=== PATIENT | female | born 1980 | race Caucasian/White ===

== ENCOUNTER 2018-08-24 16:30 | Emergency (ER) | payer SELFPAY ==
--- NOTE | 2018-08-24 16:48 | ER Document Report ---
ED Medical Screen (RME) - General Chief Complaint: S/S of Possible Stroke Stated Complaint: POSSIBLE STROKE Time Seen by Provider: 08/24/18 16:35 TRAVEL OUTSIDE OF THE [place] 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 On brief history and exam. Patient has had complex migraines. She is complaining of a headache, slurring of speech, and right arm/right leg weakness. This started 40 minutes prior to arrival around 4:55 PM. She is accompanied by her 2 daughters. Denies FINN, fever, neck pain, URI, CP, SOB, Abd pain, or rash. I have treated and performed a rapid initial assessment of this patient. A comprehensive ED assessment and evaluation of the patient, analysis of test results and completion of medical decision making process will be conducted by additional ED providers. Reviewed with Dr. Bee who is evaluating patient at this time after she went to CT. PHYSICAL EXAMINATION: GENERAL: A&Ox4. Answers questions appropriately. HEAD: Atraumatic, normocephalic. Non-tender. EYES: Pupils equal round and reactive to light, extraocular movements intact, sclera anicteric, conjunctiva are normal. No nystagmus. NECK: Normal range of motion, supple without lymphadenopathy. No rigidity/meningismus. No midline tenderness. LUNGS: Breath sounds clear to auscultation bilaterally and equal. No wheezes rales or rhonchi. HEART: Regular rate and rhythm without murmurs, rubs, gallops. Musculoskeletal: Rt arm/le+/5 strength. Left 5+/5. Dec sensation rt arm/leg to sharp. Extremities: No cyanosis, clubbing, or edema b/l. Peripheral pulses 2+. Capillary refill less than 2 seconds. NEUROLOGICAL: NIH 8 (for speech, arm/leg dec sensation and drift, left facial droop). GCS 15. Cranial nerves grossly intact. PSYCH: Normal mood, normal affect. SKIN: Warm, Dry, normal turgor, no rashes or lesions noted. - Related Data Allergies/Adverse Reactions: latex Allergy (Verified 08/24/18 16:31)
[2018-08-24] MEDS ORDERED: MORPHINE SULFATE 10 MG/ML INJ ONE (16:49)
[2018-08-24] MEDS ORDERED: DIPHENHYDRAMINE HCL 50 MG/ML VIAL ONE (16:49)
[2018-08-24] MEDS ORDERED: METOCLOPRAMIDE HCL INJ/PF 10 MG/2 ML SDV ONE (16:50)
[2018-08-24] MEDS ORDERED: ONDANSETRON HCL INJ/PF 4 MG/2 ML SDV ONE (16:50)
--- NOTE | 2018-08-24 16:54 | RADIOLOGY REPORT (SQ) ---
EXAM DESCRIPTION: CT HEAD WITHOUT COMPLETED DATE/TIME: 08/24/2018 4:45 pm REASON FOR STUDY: stroke s/s COMPARISON: None. TECHNIQUE: Axial images acquired through the brain without intravenous contrast. Images reviewed wi th bone, brain and subdural windows. Additional sagittal and coronal reconstructions were generated. Images stored on PACS. All CT scanners at this facility use dose modulation, iterative reconstruction, and/or weight based d osing when appropriate to reduce radiation dose to as low as reasonably achievable (ALARA). [facility]: Dose Right [facility]: CareDose [facility]: Dose Right [facility]: Teradose 4D [facility]: [employer] RADIATION DOSE: CT Rad equipment meets quality standard of care and radiation dose reduction techniq ues were employed. CTDIvol: 53.2 mGy. DLP: 1044 mGy-cm. mGy. LIMITATIONS: None. FINDINGS: VENTRICLES: Normal size and contour. CEREBRUM: No masses. No hemorrhage. No midline shift. No evidence for acute infarction. Normal gra y/white matter differentiation. No areas of low density in the white matter. CEREBELLUM: No masses. No hemorrhage. No alteration of density. No evidence for acute infarction. EXTRAAXIAL SPACES: No fluid collections. No masses. ORBITS AND GLOBE: No intra- or extraconal masses. Normal contour of globe without masses. CALVARIUM: No fracture. PARANASAL SINUSES: No fluid or mucosal thickening. SOFT TISSUES: No mass or hematoma. OTHER: No other significant finding. IMPRESSION: No acute intracranial pathology. No CT evidence of acute stroke or hemorrhage. EVIDENCE OF ACUTE STROKE: NO. Findings reported to ER by telephone, 1648 hours, 08/24/2018. COMMENT: Quality ID # [id number]: Final reports with documentation of one or more dose reduction techniques (e.g., Automated exposure control, adjustment of the mA and/or kV according to patient size, use of iterative reconstruction technique) TECHNICAL DOCUMENTATION: JOB ID: [id number] [employer]- All Rights Reserved Reading location - IP/workstation name: [email or web address]
--- NOTE | 2018-08-24 16:56 | RADIOLOGY REPORT (SQ) ---
EXAM DESCRIPTION: CHEST SINGLE VIEW COMPLETED DATE/TIME: 08/24/2018 4:45 pm REASON FOR STUDY: stroke s/s COMPARISON: None. EXAM PARAMETERS: NUMBER OF VIEWS: One view. TECHNIQUE: Single frontal radiographic view of the chest acquired. RADIATION DOSE: NA LIMITATIONS: None. FINDINGS: LUNGS AND PLEURA: No opacities, masses or pneumothorax. No pleural effusion. MEDIASTINUM AND HILAR STRUCTURES: No masses. Contour normal. HEART AND VASCULAR STRUCTURES: Heart normal in size. Normal vasculature. BONES: No acute findings. HARDWARE: None in the chest. OTHER: No other significant finding. IMPRESSION: No acute abnormality of the lungs in AP projection. TECHNICAL DOCUMENTATION: JOB ID: [id number] [facility]- All Rights Reserved Reading location - IP/workstation name: [email or web address]
[2018-08-24] MEDS ORDERED: MAGNESIUM SULFATE/D5W 1 GM/100 ML RTUPB IV ONE (17:10)
[2018-08-24] MEDS ORDERED: VALPROATE SODIUM INJ/PF 500 MG/5 ML SDV IV ONE (17:10)
[2018-08-24 17:11] LABS: ABSOLUTE EOSINOPHILS # (AUTO) 0.1 10^3/uL (0.0-0.6); ABSOLUTE LYMPHOCYTES (AUTO) 2.2 10^3/uL (0.5-4.7); ABSOLUTE MONOCYTES (AUTO) 0.3 10^3/uL (0.1-1.4); ABSOLUTE NEUT (AUTO) 3.2 10^3/uL (1.7-8.2); BASOPHILS % (AUTO) 0.8 % (0-2); HEMATOCRIT 45.5 % (36.0-47.0); HEMOGLOBIN 15.3 g/dL (12.0-15.5); LYMPHOCYTES % (AUTO) 37.1 % (13-45); MEAN CORPUSCULAR HEMOGLOBIN 28.4 pg (27.0-33.4); MEAN CORPUSCULAR HGB CONC 33.7 g/dL (32.0-36.0); MEAN CORPUSCULAR VOLUME 85 fl (80-97); MONOCYTES % (AUTO) 5.5 % (3-13); PLATELET COUNT 214 10^3/uL (150-450); RED BLOOD COUNT 5.39 10^6/uL (3.72-5.28); RED CELL DISTRIBUTION WIDTH 14.3 % (11.5-14.0); SEGMENTED NEUTROPHILS % (AUTO) 54.6 % (42-78); TOTAL CELLS COUNTED % (AUTO) 100 %; WHITE BLOOD COUNT 5.9 10^3/uL (4.0-10.5)
[2018-08-24] MEDS ORDERED: NORMAL SALINE 500 ML IV ONE (17:11)
--- NOTE | 2018-08-24 17:18 | ER Document Report ---
ED General - General Chief Complaint: S/S of Possible Stroke Stated Complaint: POSSIBLE STROKE Time Seen by Provider: 08/24/18 16:35 Primary Care Provider: АЛЕКСАНДР ALBA DO [NO LOCAL MD] - 08/26/18 Mode of Arrival: Wheelchair Information source: Patient Notes: This is a 38-year-old female that is brought into the emergency room with speech difficulties, right-sided weakness and numbness, and headache. Patient is accompanied by her daughters (1 of his daughters drove her to the hospital). She states they were online within the hour at [facility] when the symptoms began acutely. They also mentioned that she had slurred speech, difficulty speaking, visual disturbances along with a headache. The daughter does state that the patient had a similar presentation several months ago and was evaluated in [place]. TRAVEL OUTSIDE OF THE [place] IN LAST 30 DAYS: No - HPI Onset: This afternoon Onset/Duration: Sudden Quality of pain: Dull Severity: Severe Pain Level: 5 Associated symptoms: denies: Chest pain, Fever, Shortness of breath Exacerbated by: Denies Relieved by: Denies Similar symptoms previously: Yes Recently seen / treated by doctor: No - Related Data Allergies/Adverse Reactions: latex Allergy (Verified 08/24/18 16:31) Past Medical History - General Information source: Patient, Relative - Social History Smoking Status: Current Some Day Smoker Cigarette use (# per day): Yes - Half pack per day Chew tobacco use (# tins/day): No Frequency of alcohol use: None Drug Abuse: None Lives with: Family Family History: None Patient has suicidal ideation: No Patient has homicidal ideation: No - Past Medical History Cardiac Medical History: Reports: None Pulmonary Medical History: Reports: None EENT Medical History: Reports: None Neurological Medical History: Reports: Hx Migraine Endocrine Medical History: Reports: None Renal/ Medical History: Reports: None Malignancy Medical History: Reports: None GI Medical History: Reports: None Musculoskeletal Medical History: Reports None Skin Medical History: Reports None Psychiatric Medical History: Reports: None Traumatic Medical History: Reports: None Infectious Medical History: Reports: None Surgical Hx: Negative Review of Systems - Review of Systems Constitutional: denies: Chills, Fever EENT: No symptoms reported Cardiovascular: No symptoms reported Respiratory: No symptoms reported Gastrointestinal: No symptoms reported Genitourinary: No symptoms reported Female Genitourinary: No symptoms reported Musculoskeletal: No symptoms reported, Joint pain Hematologic/Lymphatic: No symptoms reported Neurological/Psychological: See HPI Physical Exam - Vital signs Vitals: Resp Pulse Ox 15 96 08/24/18 16:58 08/24/18 16:58 Notes: Physical exam: GENERAL: Patient is alert and oriented x3, she does appear in significant distress, she is complaining of 10/10 headache. She does complain of right- sided weakness and numbness and she clearly has difficulty speaking. HEAD: Atraumatic, normocephalic. EYES: Pupils equal round and reactive to light, extraocular movements intact, sclera anicteric, conjunctiva are normal. ENT: TMs normal, nares patent, oropharynx clear without exudates. Moist mucous membranes. NECK: Normal range of motion, supple without obvious mass or JVD. LUNGS: Breath sounds clear to auscultation bilaterally and equal. No wheezes rales or rhonchi. HEART: Regular rate and rhythm without murmurs, rubs or gallops. ABDOMEN: Soft, normoactive bowel sounds. No tenderness to palpation. No guarding, no rebound. No masses appreciated. EXTREMITIES: Normal range of motion, no pitting or edema. No clubbing or cyanosis. NEUROLOGICAL: Patient is alert and keenly responsive. She does know the month and her age. She is able to open and close her eyes and open and close her left hand and. She does have a normal gaze. Patient may have a partial hemianopsia (left upper quadrant anomia: (1), patient does have right facial droop (1), patient does have drifting of the right upper and lower extremity without hitting the bed (1 each), patient has no limb ataxia when testing the nonaffected (left side). Patient does complain of right-sided upper and lower extremity sensory deficit (1) 1, patient does have moderate aphasia (1) and moderate dysarthria (1). NIH score is 7. PSYCH: Normal mood, normal affect. SKIN: Warm, Dry, normal turgor, no rashes or lesions noted. Course - Re-evaluation Re-evalutation: 08/24/18 17:[address] Sarmiento who is the neurologist in [place]. We reviewed the previous findings from the patient's last hospitalization when she was diagnosed with complex migraine (she had presented at that time with left sided stroke symptoms). The plan will be to treat as a complicated migraine and monitor the response in the next hour and to reassess and discuss whether or not to go with TPA. 08/24/18 18:10 Repeat evaluation NIH score: Patient symptoms have much improved. She no longer has facial droop or right-sided weakness. Her speech is almost back to baseline. Given the significant improvement with treatment for a complicated migraine, I have decided to hold off with thrombolytics. I discussed the issue with the patient and her daughters and they are in agreement. I have contacted the transfer line in [place] and let them know that we are not giving thrombolytics and treating the patient as a complicated migraine. 08/24/18 20:34 Patient is improved significantly. She is requesting to go home. 08/25/18 22:57 - Vital Signs Vital signs: Temp Pulse Resp BP Pulse Ox 104 H 12 162/109 H 90 L 08/24/18 17:00 08/24/18 20:31 08/24/18 20:31 08/24/18 20:31 - Laboratory Result Diagrams: 08/24/18 17:00 08/24/18 17:00 Laboratory results interpreted by me: 08/24/18 08/24/18 08/24/18 16:55 17:00 17:00 RBC 5.39 H RDW 14.3 H Glucose 149 H POC Glucose 151 H AST 50 H ALT 66 H - Diagnostic Test Radiology reviewed: Image reviewed, Reports reviewed - CT of the head shows nothing acute Critical Care Note - Critical Care Note Total time excluding time spent on procedures (mins): 60 Discharge - Discharge Clinical Impression: Complicated migraine Condition: Stable Disposition: HOME, SELF-CARE Additional Instructions: As we discussed, I did discuss the case with the neurologist and [place] and you did have a history of a complicated migraine at that time. It is important to note that with complicated migraines, you can develop strokelike symptoms. So be sure to let doctors know if you get symptoms like these again in the future. Take the pain medicine as prescribed. Take the nausea medicine as needed. Return to the emergency room for worsening pain, weakness, slurred speech or any concerns or getting worse. Do want you to follow-up with a primary care doctor. If you do not have one, I left the number for one on the chart. The pain medicine you're taking prescribed as a narcotic. There are several important things you should know about this medicine: 1. This medicine contains Tylenol: It is important that you do not take Tylenol (or acetaminophen) while on this medicine. Tylenol is metabolized by the liver and taking too much Tylenol (acetaminophen) can lay to liver damage and even liver failure. 2. Taking narcotics for too long can lead to physical and mental dependence. T zoe this medicine only if really needed and in the lowest quantity to achieve pain relief. 3. Do not drink alcohol while on this medicine. Alcohol interacts with narcotics and the combination can be dangerous. 4. Do not drive or operate machinery while on this medicine. 5. Narcotics do cause constipation, so drink plenty of fluids and daily stool softeners. Prescriptions: Oxycodone HCl/Acetaminophen [Percocet 5-325 mg Tablet] 1 - 2 tab PO ASDIR PRN #25 tablet PRN Reason: Promethazine HCl [Phenergan 25 mg Tablet] 25 mg PO Q6H PRN #15 tablet PRN Reason: Forms: Return to Work Referrals: АЛЕКСАНДР ALBA DO [NO LOCAL MD] - 08/26/18
[2018-08-24 17:19] LABS: INTERNATIONAL RATION (INR) 0.89; PROTHROMBIN TIME 12.5 SEC (11.4-15.4)
[2018-08-24 17:27] LABS: ALANINE AMINOTRANSFERASE 66 U/L (9-52); ALBUMIN 4.4 g/dL (3.5-5.0); ALKALINE PHOSPHATASE 98 U/L (38-126); ANION GAP 13 (5-19); ASPARTATE AMINO TRANSFERASE 50 U/L (14-36); BILIRUBIN,DIRECT 0.4 mg/dL (0.0-0.4); BILIRUBIN,TOTAL 0.5 mg/dL (0.2-1.3); BLOOD UREA NITROGEN 10 mg/dL (7-20); CALCIUM 9.6 mg/dL (8.4-10.2); CARBON DIOXIDE 28 mmol/L (22-30); CHLORIDE 102 mmol/L (98-107); CREATINE KINASE 74 U/L (30-135); GLUCOSE 149 mg/dL (75-110); POTASSIUM 3.6 mmol/L (3.6-5.0); SODIUM 142.9 mmol/L (137-145)
[2018-08-24 17:39] LABS: CREATINE KINASE MB 1.45 ng/mL (<4.55)
[2018-08-24 17:40] LABS: TROPONIN I < 0.012 ng/mL
[2018-08-24] MEDS ORDERED: MORPHINE SULFATE 10 MG/ML INJ IV ONE ×2 (19:27→19:54)
[2018-08-24] MEDS ORDERED: ONDANSETRON HCL INJ/PF 4 MG/2 ML SDV IV ONE (19:27)
[2018-08-24] MEDS ORDERED: DIPHENHYDRAMINE HCL 50 MG/ML VIAL IV ONE (19:28)
[2018-08-24] MEDS ORDERED: METOCLOPRAMIDE HCL INJ/PF 10 MG/2 ML SDV IV ONE (19:28)
[2018-08-24 21:47] VITALS: BP 162/109
--- NOTE | 2018-08-25 00:04 | EKG REPORT ---
SEVERITY:- OTHERWISE NORMAL ECG - SINUS TACHYCARDIA : Confirmed by: Bhupinder Pedraza 25-Aug-2018 00:03:30
== END 2018-08-24 21:50 | disposition home or self-care (01) ==
LOC: ER 16:30
DX: G43.109 Migraine with aura, not intractable, without status migrainosus (principal); R47.9 Unspecified speech disturbances; R53.1 Weakness; F17.210 Nicotine dependence, cigarettes, uncomplicated; Z91.040 Latex allergy status
CPT/HCPCS: 93005; 96376; 99291; 96361; 96374; 96375; 36415; 82553; 82962; 82550; 85025; 85610; 80053; 84484; 71045; 70450; 93010; J1200; J2765; J2270; J3475; J2405; J7040; J3490

== ENCOUNTER 2018-09-22 11:18 | Emergency (ER) | payer SELFPAY ==
[2018-09-22 11:38] VITALS: BP 174/118
[2018-09-22] MEDS ORDERED: DIPHENHYDRAMINE HCL 50 MG/ML VIAL IV ONE (12:26)
[2018-09-22] MEDS ORDERED: PROCHLORPERAZINE EDISYLATE INJ 10 MG/2 ML VIAL IV ONE (12:26)
[2018-09-22] MEDS ORDERED: KETOROLAC TROMETHAMINE INJ/PF 30 MG/1 ML SDV IV ONE (12:26)
--- NOTE | 2018-09-22 12:29 | ER Document Report ---
ED Medical Screen (RME) - General Chief Complaint: Headache Stated Complaint: HEADACHE,NAUSEA Time Seen by Provider: 09/22/18 12:20 TRAVEL OUTSIDE OF THE [place] IN LAST 30 DAYS: No - HPI Notes: 09/22/18 12:26 Patient is a 38-year-old female with a history of complex migraines who presents complaining of another migraine headache that started prior to arrival. Patient states that she has had for this past week. Headache symptoms are similar to her migraines and is not the worst one that she has ever had. She has been in contact with her other providers about this issue as well. Patient states that when her conservative measures fail she does present here for medical management. I saw her 1 of the previous times for triage and her signs/symptoms were significantly worse, see Dr. jimenez's note. Denies fever, neck pain, URI, CP, SOB, Abd pain, dysuria, back pain, or rash. I have treated and performed a rapid initial assessment of this patient. A comprehensive ED assessment and evaluation of the patient, analysis of test results and completion of medical decision making process will be conducted by additional ED providers. PHYSICAL EXAMINATION: GENERAL: Well-appearing, well-nourished and in no acute distress. A&Ox4. Answers questions appropriately. HEAD: Atraumatic, normocephalic. Non-tender. EYES: Pupils equal round and reactive to light, extraocular movements intact, sclera anicteric, conjunctiva are normal. No nystagmus. vis llanes intact. ENT: Nares patent and without discharge. oropharynx clear without exudates. No tonsilar hypertrophy or erythema. Moist mucous membranes. NECK: Normal range of motion, supple without lymphadenopathy. No rigidity/meningismus. No midline tenderness. LUNGS: Breath sounds clear to auscultation bilaterally and equal. No wheezes rales or rhonchi. HEART: Regular rate and rhythm without murmurs, rubs, gallops. Musculoskeletal: Ext's b/l: FROM to passive/active. Strength 5+/5. No deficits noted. No bony tenderness of extremities. Extremities: No cyanosis, clubbing, or edema b/l. Peripheral pulses 2+. Capillary refill less than 2 seconds. NEUROLOGICAL: NIH 0. GCS 15. Cranial nerves grossly intact. Normal speech, normal gait. Normal sensory, motor exams. Reflexes 2+ b/l. LAURA's negative. Pronator drift negative. Heel/holguin, finger/nose wnl. PSYCH: Normal mood, normal affect. SKIN: Warm, Dry, normal turgor, no rashes or lesions noted. - Related Data Allergies/Adverse Reactions: haloperidol Allergy (Unknown, Verified 09/22/18 11:25) Sulfa (Sulfonamide Antibiotics) Allergy (Unknown, Verified 09/22/18 11:25) latex Allergy (Verified 09/22/18 11:25) Past Medical History - Social History Frequency of alcohol use: None Drug Abuse: None Neurological Medical History: Reports: Hx Migraine Renal/ Medical History: Denies: Hx Peritoneal Dialysis Past Surgical History: Reports: Hx Appendectomy, Hx Section, Hx Cholecystectomy Physical Exam - Vital signs Vitals: Temp Pulse Resp BP Pulse Ox 98.6 F 106 H 18 174/118 H 96 09/22/18 11:36 09/22/18 11:36 09/22/18 11:36 09/22/18 11:36 09/22/18 11:36 Course - Vital Signs Vital signs: Temp Pulse Resp BP Pulse Ox 98.6 F 106 H 18 174/118 H 96 09/22/18 11:36 09/22/18 11:36 09/22/18 11:36 09/22/18 11:36 09/22/18 11:36
[2018-09-22] MEDS ORDERED: CLONIDINE HCL 0.1 MG TABLET PO ONE (12:30)
== END 2018-09-22 16:55 | disposition left against medical advice (07) ==
LOC: ER 11:18
DX: Z53.21 Procedure and treatment not carried out due to patient leaving prior to being seen by health care provider (principal); R51 Headache; R11.0 Nausea
CPT/HCPCS: 99281

== ENCOUNTER 2018-10-13 11:35 | Emergency (ER) | payer SELFPAY ==
--- NOTE | 2018-10-13 11:40 | ER Document Report ---
ED Medical Screen (RME) - General Stated Complaint: SLURRED SPEECH, FACIAL NUMBNESS Time Seen by Provider: 10/13/18 11:38 Mode of Arrival: Wheelchair Information source: Patient Notes: Patient presents with acute headache slurred speech facial numbness that just started. Reports it feels like her Left eye is coming out of her head reports she just started taking a Z-Maurilio but has had that medication before no trauma. She was at work when all symptoms started. TRAVEL OUTSIDE OF THE [place] IN LAST 30 DAYS: No - Related Data Allergies/Adverse Reactions: haloperidol Allergy (Unknown, Verified 10/13/18 11:39) Sulfa (Sulfonamide Antibiotics) Allergy (Unknown, Verified 10/13/18 11:39) latex Allergy (Verified 10/13/18 11:39) Past Medical History Neurological Medical History: Reports: Hx Migraine Renal/ Medical History: Denies: Hx Peritoneal Dialysis Past Surgical History: Reports: Hx Appendectomy, Hx Section, Hx Cholecystectomy Physical Exam - Vital signs Vitals: Resp 18 10/13/18 11:59 Course - Vital Signs Vital signs: Temp Pulse Resp BP Pulse Ox 97.9 F 89 16 171/98 H 97 10/13/18 16:20 10/13/18 12:15 10/13/18 16:01 10/13/18 16:00 10/13/18 12:15 - Laboratory Result Diagrams: 10/13/18 12:22 10/13/18 12:22 Laboratory results interpreted by me: 10/13/18 10/13/18 12:22 12:22 RDW 14.7 H Potassium 3.0 L* Glucose 111 H AST 54 H ALT 62 H Doctor's Discharge - Discharge Clinical Impression: Migraine, Facial paresthesia, Hypokalemia Condition: Stable Disposition: HOME, SELF-CARE Instructions: Hypokalemia ([facility]), Migraine Headache ([facility]) Additional Instructions: Please return to the emergency department if you have any worsening, or concern of your symptoms. Please return to the emergency department if you develop chest pain, difficulty breathing, severe abdominal pain, or ongoing vomiting. Please follow-up with your primary care physician in 2-3 days and any other recommended physicians. If prescribed, take all medications as directed. If you have any questions or concerns do not hesitate to return the emergency department for evaluation. Please follow-up with your neurologist next week to discuss your migraines
--- NOTE | 2018-10-13 12:02 | RADIOLOGY REPORT (SQ) ---
EXAM DESCRIPTION: CT HEAD WITHOUT COMPLETED DATE/TIME: 10/13/2018 11:51 am REASON FOR STUDY: STROKE SX COMPARISON: None. TECHNIQUE: Axial images acquired through the brain without intravenous contrast. Images reviewed wi th bone, brain and subdural windows. Additional sagittal and coronal reconstructions were generated. Images stored on PACS. All CT scanners at this facility use dose modulation, iterative reconstruction, and/or weight based d osing when appropriate to reduce radiation dose to as low as reasonably achievable (ALARA). [facility]: Dose Right [facility]: CareDose [facility]: Dose Right [facility]: Teradose 4D [facility]: [employer] RADIATION DOSE: CT Rad equipment meets quality standard of care and radiation dose reduction techniq ues were employed. CTDIvol: 53.2 mGy. DLP: 1017 mGy-cm. mGy. LIMITATIONS: None. FINDINGS: VENTRICLES: Normal size and contour. CEREBRUM: No masses. No hemorrhage. No midline shift. No evidence for acute infarction. Normal gra y/white matter differentiation. No areas of low density in the white matter. CEREBELLUM: No masses. No hemorrhage. No alteration of density. No evidence for acute infarction. EXTRAAXIAL SPACES: No fluid collections. No masses. ORBITS AND GLOBE: No intra- or extraconal masses. Normal contour of globe without masses. CALVARIUM: No fracture. PARANASAL SINUSES: No fluid or mucosal thickening. SOFT TISSUES: No mass or hematoma. OTHER: No other significant finding. IMPRESSION: NORMAL BRAIN CT WITHOUT CONTRAST. EVIDENCE OF ACUTE STROKE: NO. COMMENT: Pertinent positive or negative findings of the imaging study reported as a CRITICAL EXAM yosef MILLER NP at11:55 on 10/13/2018. Category of Critical Exam: Stroke alert. Quality ID # [id number]: Final reports with documentation of one or more dose reduction techniques (e.g., Au tomated exposure control, adjustment of the mA and/or kV according to patient size, use of iterative reconstruction technique) TECHNICAL DOCUMENTATION: JOB ID: [id number] [employer]- All Rights Reserved Reading location - IP/workstation name: [email or web address]
--- NOTE | 2018-10-13 12:13 | RADIOLOGY REPORT (SQ) ---
EXAM DESCRIPTION: CHEST SINGLE VIEW COMPLETED DATE/TIME: 10/13/2018 11:55 am REASON FOR STUDY: STROKE SX COMPARISON: 08/24/2018 EXAM PARAMETERS: NUMBER OF VIEWS: One view. TECHNIQUE: Single frontal radiographic view of the chest acquired. RADIATION DOSE: NA LIMITATIONS: None. FINDINGS: LUNGS AND PLEURA: There is minimal linear scarring or atelectasis of the left lung base. No pleural effusion. MEDIASTINUM AND HILAR STRUCTURES: No masses. Contour normal. HEART AND VASCULAR STRUCTURES: Cardiomegaly. BONES: No acute findings. HARDWARE: None in the chest. OTHER: No other significant finding. IMPRESSION: Cardiomegaly without acute abnormality of the lungs in AP projection. TECHNICAL DOCUMENTATION: JOB ID: [id number] [employer]- All Rights Reserved Reading location - IP/workstation name: [email or web address]
[2018-10-13 12:36] LABS: ABSOLUTE EOSINOPHILS # (AUTO) 0.1 10^3/uL (0.0-0.6); ABSOLUTE LYMPHOCYTES (AUTO) 2.8 10^3/uL (0.5-4.7); ABSOLUTE MONOCYTES (AUTO) 0.6 10^3/uL (0.1-1.4); ABSOLUTE NEUT (AUTO) 6.3 10^3/uL (1.7-8.2); BASOPHILS % (AUTO) 0.5 % (0-2); EOSINOPHILS % (AUTO) 0.8 % (0-6); HEMATOCRIT 43.2 % (36.0-47.0); HEMOGLOBIN 14.9 g/dL (12.0-15.5); LYMPHOCYTES % (AUTO) 28.3 % (13-45); MEAN CORPUSCULAR HEMOGLOBIN 29.3 pg (27.0-33.4); MEAN CORPUSCULAR HGB CONC 34.5 g/dL (32.0-36.0); MEAN CORPUSCULAR VOLUME 85 fl (80-97); MONOCYTES % (AUTO) 6.3 % (3-13); PLATELET COUNT 241 10^3/uL (150-450); RED BLOOD COUNT 5.09 10^6/uL (3.72-5.28); RED CELL DISTRIBUTION WIDTH 14.7 % (11.5-14.0); SEGMENTED NEUTROPHILS % (AUTO) 64.1 % (42-78); TOTAL CELLS COUNTED % (AUTO) 100 %; WHITE BLOOD COUNT 9.9 10^3/uL (4.0-10.5)
[2018-10-13 12:39] LABS: INTERNATIONAL RATION (INR) 0.99
[2018-10-13 12:40] LABS: PARTIAL THROMBOPLASTIN TIME 25.7 SEC (23.5-35.8)
[2018-10-13 12:42] LABS: PROTHROMBIN TIME 13.1 SEC (11.4-15.4)
[2018-10-13 13:05] LABS: ALANINE AMINOTRANSFERASE 62 U/L (9-52); ALKALINE PHOSPHATASE 94 U/L (38-126); ANION GAP 9 (5-19); ASPARTATE AMINO TRANSFERASE 54 U/L (14-36); BILIRUBIN,DIRECT 0.3 mg/dL (0.0-0.4); BILIRUBIN,TOTAL 0.4 mg/dL (0.2-1.3); BLOOD UREA NITROGEN 15 mg/dL (7-20); CALCIUM 9.4 mg/dL (8.4-10.2); CARBON DIOXIDE 27 mmol/L (22-30); CHLORIDE 104 mmol/L (98-107); CREATINE KINASE 30 U/L (30-135); GLUCOSE 111 mg/dL (75-110); SODIUM 140.3 mmol/L (137-145); TOTAL PROTEIN 6.6 g/dL (6.3-8.2)
[2018-10-13 13:15] LABS: CREATINE KINASE MB 0.43 ng/mL (<4.55)
[2018-10-13 13:21] LABS: TROPONIN I < 0.012 ng/mL
[2018-10-13] MEDS ORDERED: KETOROLAC TROMETHAMINE INJ/PF 30 MG/1 ML SDV IV ONE (13:51)
[2018-10-13] MEDS ORDERED: POTASSIUM CHLORIDE 20 MEQ PACKET PO ONE (13:51)
[2018-10-13] MEDS ORDERED: NORMAL SALINE 1000 ML 1,000 ML IV ONE (13:51)
[2018-10-13] MEDS ORDERED: DIPHENHYDRAMINE HCL 50 MG/ML VIAL IV ONE (13:51)
[2018-10-13] MEDS ORDERED: POTASSIUM CHLORIDE 10 MEQ CAPSULE.ER PO ONE (14:16)
--- NOTE | 2018-10-13 15:25 | ER Document Report ---
ED General - General Chief Complaint: S/S of Possible Stroke Stated Complaint: SLURRED SPEECH, FACIAL NUMBNESS Time Seen by Provider: 10/13/18 11:38 Mode of Arrival: Wheelchair TRAVEL OUTSIDE OF THE [place] IN LAST 30 DAYS: No - HPI Notes: Patient is a 38-year-old female that presents to the emergency department for chief complaint of headache. Patient reports history of complex migraines. Around 1030 this morning she started to have a sharp headache behind her left eye. She described it as a tight pressure sensation. She shortly after began to feel paresthesias on the upper and lower part of her left face. She states she then felt like her speech was slurred. She did not take any medication prior to arrival in the emergency room. She denied any upper or lower extremity numbness or weakness. Patient has had migraines with neurologic deficits previously. She received medications in triage and currently reports feeling asymptomatic. She did not have any associated chest pain, shortness of breath, fevers, neck pain, nausea or vomiting. Past Medical History: Complex migraines Past Surgical History: Partial hysterectomy Social History: Denies drugs alcohol and tobacco Family History: Reviewed and noncontributory for presenting illness Allergies: Reviewed, see documented allergy list. REVIEW OF SYSTEMS: CONSTITUTIONAL : No fever No chills No diaphoresis No recent illness EENT: No vision changes No congestion No sore throat CARDIOVASCULAR: No chest pain No palpitations RESPIRATORY: No shortness of breath No cough No difficulty breathing GASTROINTESTINAL: No abdominal pain No nausea No vomiting No diarrhea GENITOURINARY: No dysuria No hematuria No difficulty urinating MUSCULOSKELETAL: No back pain No leg pain No arm pain SKIN: No rashes No lesions LYMPHATIC: No swollen, enlarged glands. NEUROLOGICAL: No lightheadedness headache No weakness paresthesias PSYCHIATRIC: No anxiety No depression PHYSICAL EXAMINATION: Vital signs reviewed, nursing noted reviewed. GENERAL: Well-appearing, obese and in no acute distress. HEAD: Atraumatic, normocephalic. EYES: Eyes appear normal, extraocular movements intact, sclera anicteric, conjunctiva are normal. ENT: nares patent, oropharynx clear without exudates. Moist mucous membranes. NECK: Normal range of motion, supple without lymphadenopathy LUNGS: Breath sounds clear to auscultation bilaterally and equal. No wheezes rales or rhonchi. HEART: Regular rate and rhythm without murmurs ABDOMEN: Soft, nontender, normoactive bowel sounds. No rebound, guarding, or rigidity. No masses appreciated. EXTREMITIES: Nontender, good range of motion, no pitting or edema. NEUROLOGICAL: NIH=0 No focal neurological deficits. Moves all extremities spontaneously Motor and sensory grossly intact on exam. PSYCH: Normal mood, normal affect. SKIN: Warm, Dry, normal turgor, no rashes or lesions noted on exposed skin - Related Data Allergies/Adverse Reactions: haloperidol Allergy (Unknown, Verified 10/13/18 11:39) Sulfa (Sulfonamide Antibiotics) Allergy (Unknown, Verified 10/13/18 11:39) latex Allergy (Verified 10/13/18 11:39) Past Medical History - General Information source: Patient - Social History Smoking Status: Former Smoker Frequency of alcohol use: None Drug Abuse: None Family History: None Patient has suicidal ideation: No Patient has homicidal ideation: No Neurological Medical History: Reports: Hx Migraine Renal/ Medical History: Denies: Hx Peritoneal Dialysis Past Surgical History: Reports: Hx Appendectomy, Hx Section, Hx Cholecystectomy Physical Exam - Vital signs Vitals: Temp Pulse Resp BP Pulse Ox 98.6 F 89 17 159/99 H 97 10/13/18 12:15 10/13/18 12:15 10/13/18 12:15 10/13/18 12:15 10/13/18 12:15 Course - Re-evaluation Re-evalutation: 10/13/18 15:23 Vitals reviewed. Nursing notes reviewed. Patient was hypokalemic on lab work but the remainder of her work-up was unremarkable. CT brain shows no acute intracranial pathology. Her symptoms upon my evaluation of her are completely resolved. She has no focal neurologic deficits. I did review her chart which showed prior presentations and diagnosis of complex migraine. Patient does have a neurologist that she will follow with as an outpatient. She also states she has been told in the past that some of her migraines are related to estrogen fluctuations since she has had a partial hysterectomy and only has one ovary. She is planning on following with her [employer] next week to discuss her hormone fluctuations. Patient is requesting to be discharged home since she is feeling much better. She was counseled on return precautions. She is stable at discharge. Laboratory 10/13/18 10/13/18 10/13/18 12:22 12:22 12:22 WBC 9.9 RBC 5.09 Hgb 14.9 Hct 43.2 MCV 85 MCH 29.3 MCHC 34.5 RDW 14.7 H Plt Count 241 Seg Neutrophils % 64.1 Lymphocytes % 28.3 Monocytes % 6.3 Eosinophils % 0.8 Basophils % 0.5 Absolute Neutrophils 6.3 Absolute Lymphocytes 2.8 Absolute Monocytes 0.6 Absolute Eosinophils 0.1 Absolute Basophils 0.0 PT 13.1 INR 0.99 APTT 25.7 Sodium 140.3 Potassium 3.0 L* Chloride 104 Carbon Dioxide 27 Anion Gap 9 BUN 15 Creatinine 0.62 Est GFR ( Amer) > 60 Est GFR (Non-Af Amer) > 60 Glucose 111 H POC Glucose Calcium 9.4 Total Bilirubin 0.4 Direct Bilirubin 0.3 Neonat Total Bilirubin Not Reportable Neonat Direct Bilirubin Not Reportable Neonat Indirect Bili Not Reportable AST 54 H ALT 62 H Alkaline Phosphatase 94 Creatine Kinase 30 CK-MB (CK-2) Troponin I Total Protein 6.6 Albumin 4.0 10/13/18 10/13/18 12:22 13:40 WBC RBC Hgb Hct MCV MCH MCHC RDW Plt Count Seg Neutrophils % Lymphocytes % Monocytes % Eosinophils % Basophils % Absolute Neutrophils Absolute Lymphocytes Absolute Monocytes Absolute Eosinophils Absolute Basophils PT INR APTT Sodium Potassium Chloride Carbon Dioxide Anion Gap BUN Creatinine Est GFR ( Amer) Est GFR (Non-Af Amer) Glucose POC Glucose 94 Calcium Total Bilirubin Direct Bilirubin Neonat Total Bilirubin Neonat Direct Bilirubin Neonat Indirect Bili AST ALT Alkaline Phosphatase Creatine Kinase CK-MB (CK-2) 0.43 Troponin I < 0.012 Total Protein Albumin Chest X-Ray 10/13/18 11:38 IMPRESSION: Cardiomegaly without acute abnormality of the lungs in AP projection. Head CT 10/13/18 11:38 IMPRESSION: NORMAL BRAIN CT WITHOUT CONTRAST. EVIDENCE OF ACUTE STROKE: NO. - Vital Signs Vital signs: Temp Pulse Resp BP Pulse Ox 98.6 F 89 17 159/99 H 97 10/13/18 12:15 10/13/18 12:15 10/13/18 12:15 10/13/18 12:15 10/13/18 12:15 - Laboratory Result Diagrams: 10/13/18 12:22 10/13/18 12:22 Laboratory results interpreted by me: 10/13/18 10/13/18 12:22 12:22 RDW 14.7 H Potassium 3.0 L* Glucose 111 H AST 54 H ALT 62 H - EKG Interpretation by Me Additional EKG results interpreted by me: 10/13/18 15:25 Interpreted by myself 04/02/2007: Normal sinus rhythm, rate 85, normal axis, no STEMI Discharge - Discharge Clinical Impression: Facial paresthesia, Hypokalemia Migraine Qualifiers: Migraine type: unspecified Status migrainosus presence: without status migrainosus Intractability: not intractable Qualified Code(s): G43.909 - Migraine, unspecified, not intractable, without status migrainosus Condition: Stable Disposition: HOME, SELF-CARE Instructions: Migraine Headache ([facility]), Hypokalemia ([facility]) Additional Instructions: Please return to the emergency department if you have any worsening, or concern of your symptoms. Please return to the emergency department if you develop chest pain, difficulty breathing, severe abdominal pain, or ongoing vomiting. Please follow-up with your primary care physician in 2-3 days and any other recommended physicians. If prescribed, take all medications as directed. If you have any questions or concerns do not hesitate to return the emergency department for evaluation. Please follow-up with your neurologist next week to discuss your migraines
[2018-10-13 16:20] VITALS: BP 171/98
--- NOTE | 2018-10-14 18:56 | EKG REPORT ---
SEVERITY:- ABNORMAL ECG - SINUS RHYTHM PROBABLE LEFT VENTRICULAR HYPERTROPHY : Confirmed by: Glenn Shukla MD 14-Oct-2018 18:56:10
== END 2018-10-13 16:24 | disposition home or self-care (01) ==
LOC: ER 11:35
DX: G43.909 Migraine, unspecified, not intractable, without status migrainosus (principal); R20.2 Paresthesia of skin; E87.6 Hypokalemia; R47.81 Slurred speech; Z87.891 Personal history of nicotine dependence
CPT/HCPCS: 93005; 99285; 96374; 96375; 36415; 82553; 82962; 82550; 85025; 85610; 85730; 80053; 84484; 71045; 70450; 93010; J1200; J1885; J7030; J3490